=== PATIENT | female | born 1990 | race Caucasian/White ===

== ENCOUNTER 2019-03-09 10:51 | Emergency (ER) | payer OTHER ==
[~2019-03-09] VITALS: Ht 160 cm; Wt 112.5 kg
[2019-03-09] MEDS ORDERED: TRAZODONE50 MG PO (11:00)
[2019-03-09] MEDS ORDERED: AUGMENTIN 875875 MG PO (11:01)
== END 2019-03-09 11:56 | disposition home or self-care (01) ==
LOC: ED 10:51
DX: S61.215A Laceration without foreign body of left ring finger without damage to nail, initial encounter (principal); S61.217A Laceration without foreign body of left little finger without damage to nail, initial encounter; Z88.8 Allergy status to other drugs, medicaments and biological substances; Z79.899 Other long term (current) drug therapy; W45.8XXA Other foreign body or object entering through skin, initial encounter; Y93.89 Activity, other specified; Y92.89 Other specified places as the place of occurrence of the external cause; Y99.8 Other external cause status

== ENCOUNTER 2019-05-28 05:19 | Emergency (ER) | payer SELFPAY ==
[~2019-05-28] VITALS: Ht 160 cm; Wt 116.1 kg
[~2019-05-28 05:19] MED LIST: AUGMENTIN 875875 MG PO; TRAZODONE50 MG PO
[2019-05-28 06:17] LABS: BASO % 0.2 % (0.0-1.0); EOS % 0.1 % (1.0-4.0); HEMATOCRIT 40.8 % (37.0-47.0); HEMOGLOBIN 13.7 g/dl (12.0-16.0); LYMPH # 1.8 10*3/uL (1.3-4.4); LYMPH % 14.1 % (27.0-41.0); MEAN CORPUSCULAR HGB 29.2 pg (27.0-31.0); MEAN CORPUSCULAR HGB CONC 33.6 g/dl (33.0-37.0); MEAN PLATELET VOLUME 10.2 fl (9.6-12.3); MONO % 8.1 % (3.0-9.0); NEUT # 9.6 10*3/uL (2.3-7.9); NEUT % 77.1 % (47.0-73.0); PLATELET COUNT AUTOMATED 252 10*3/uL (130-400); RED BLOOD COUNT 4.69 10*6/uL (4.10-5.10); RED CELL DISTRI WIDTH 13.5 % (0-14.5); WHITE BLOOD COUNT 12.5 10*3/uL (4.8-10.8)
[2019-05-28 06:30] LABS: ALBUMIN 2.9 gm/dl (3.1-4.5); ALKALINE PHOSPHATASE 81 U/L (45-117); BUN 7 mg/dl (7-24); CHLORIDE 105 mmol/L (98-107); CREATININE 0.67 mg/dL (0.55-1.02); LIPASE 403 U/L (73-393); POTASSIUM 3.5 mmol/L (3.5-5.1); SGOT/AST 22 IU/L (3-35); SGPT/ALT 22 U/L (12-78); SODIUM 136 mmol/L (136-145); TOTAL PROTEIN 7.2 gm/dL (6.4-8.2)
[2019-05-28 06:33] LABS: B-hCG (QUALITATIVE) NEGATIVE (NEGATIVE)
[2019-05-28] MEDS ORDERED: IMODIUM A-D2 M2 PO (07:40)
[2019-05-28] MEDS ORDERED: ZOFRAN4 MG PO (07:40)
== END 2019-05-28 07:46 | disposition home or self-care (01) ==
LOC: ED 05:19
PROVIDERS: Emergency Medicine Emergency Medical Services
DX: K52.9 Noninfective gastroenteritis and colitis, unspecified (principal); K59.00 Constipation, unspecified; F41.9 Anxiety disorder, unspecified; Z88.8 Allergy status to other drugs, medicaments and biological substances; Z88.5 Allergy status to narcotic agent; Z79.2 Long term (current) use of antibiotics; Z79.899 Other long term (current) drug therapy

== ENCOUNTER 2022-06-30 13:24 | Emergency (ER) | payer OTHER ==
[~2022-06-30] VITALS: Ht 162.6 cm; Wt 129.7 kg
[~2022-06-30 13:24] MED LIST changes: +IMODIUM A-D2 M2 PO; +ZOFRAN4 MG PO
[2022-06-30] MEDS ORDERED: EPIPEN 2-P0.3 MG/0.3 IJ (15:13)
== END 2022-06-30 15:18 | disposition home or self-care (01) ==
LOC: ED 13:24
DX: T78.40XA Allergy, unspecified, initial encounter (principal); Z88.8 Allergy status to other drugs, medicaments and biological substances; Z91.018 Allergy to other foods; Z79.899 Other long term (current) drug therapy; Y92.89 Other specified places as the place of occurrence of the external cause

== ENCOUNTER 2023-05-06 02:25 | Emergency (ER) | payer OTHER ==
[~2023-05-06] VITALS: Ht 162.5 cm; Wt 123.4 kg
[~2023-05-06 02:25] MED LIST changes: +EPIPEN 2-P0.3 MG/0.3 IJ; +MILK THISTLE500 M2 PO; +REGLAN10 M1 PO
[2023-05-06] MEDS ORDERED: Ondansetron4 MG PO (04:39)
== END 2023-05-06 05:29 | disposition home or self-care (01) ==
LOC: ED 02:25
DX: U07.1 COVID-19 (principal); F41.9 Anxiety disorder, unspecified; Z88.8 Allergy status to other drugs, medicaments and biological substances; Z91.018 Allergy to other foods

== ENCOUNTER 2023-05-26 18:38 | Emergency (ER) | payer OTHER ==
[~2023-05-26] VITALS: Ht 162.5 cm; Wt 122.5 kg
[~2023-05-26 18:38] MED LIST changes: +Ondansetron4 MG PO
[2023-05-26] MEDS ORDERED: AMOX-CLAV 875-1 EACH PO (19:54)
[2023-05-26] MEDS ORDERED: Ketorolac Tromethamine 30 MG/ML VIAL IM ONE (19:55)
[2023-05-26] MEDS ORDERED: FLUONAZOLE150 M1 PO (19:55)
[2023-05-26] MEDS ORDERED: Amoxicillin/Clavulanate Pota 875 MG TAB PO ONE (19:55)
== END 2023-05-26 20:31 | disposition home or self-care (01) ==
LOC: ED 18:38
DX: S61.451A Open bite of right hand, initial encounter (principal); F41.9 Anxiety disorder, unspecified; Z88.8 Allergy status to other drugs, medicaments and biological substances; Z91.018 Allergy to other foods; W55.01XA Bitten by cat, initial encounter; Y93.89 Activity, other specified; Y92.89 Other specified places as the place of occurrence of the external cause; Y99.0 Civilian activity done for income or pay

== ENCOUNTER 2024-05-09 14:14 | Emergency (ER) | payer OTHER ==
[~2024-05-09] VITALS: Ht 160 cm; Wt 122.5 kg
[~2024-05-09 14:14] MED LIST changes: +AMOX-CLAV 875-1 EACH PO; +FLUONAZOLE150 M1 PO
[2024-05-09] MEDS ORDERED: VENLAFAXINE HYD75 M3 PO (14:17)
[2024-05-09] MEDS ORDERED: GLIPIZIDE2.5 MG PO (14:18)
[2024-05-09] MEDS ORDERED: COLESTIPOL HYDRO1 GM PO (14:18)
[2024-05-09] MEDS ORDERED: FAMOTIDINE 50 ML IV ONE (14:30)
[2024-05-09] MEDS ORDERED: methylPREDNISolone sod succ 125 MG VIAL IV ONE (14:30)
[2024-05-09] MEDS ORDERED: diphenhydrAMINE hydrochloride 50 MG/ML VIAL IV ONE (14:30)
[2024-05-09] MEDS ORDERED: EPIPEN 2-P0.3 MG/0.3 IJ (16:21)
[2024-05-09] MEDS ORDERED: PREDNISONE50 MG PO (16:21)
== END 2024-05-09 16:45 | disposition home or self-care (01) ==
LOC: ED 14:14
DX: T78.1XXA Other adverse food reactions, not elsewhere classified, initial encounter (principal); R22.0 Localized swelling, mass and lump, head; R06.02 Shortness of breath; L29.9 Pruritus, unspecified; Z88.5 Allergy status to narcotic agent; Z91.018 Allergy to other foods; Z88.8 Allergy status to other drugs, medicaments and biological substances; Z79.899 Other long term (current) drug therapy; Z79.84 Long term (current) use of oral hypoglycemic drugs; X58.XXXA Exposure to other specified factors, initial encounter